=== PATIENT | male | born 1980 | race Caucasian/White ===

== ENCOUNTER 2025-02-13 08:54 | Outpatient (REF) | payer OTHER, SELFPAY ==
--- OUTSIDE RECORDS SUMMARY | 2025-02-13 09:32 | XMS_ITS | Encounter Summary ---
Author Organization [employer] Address [address] [place] [address] 7 [place] [address] Care Team Providers Care Rn Cardiovascular Name Role Phone Brendon Padilla MD Primary Care Provider [phone] Reason for Visit * Reason Onset Date Comments Med Refill 12/13/2024 Encounter Details Date Type Department Care Team ([facility] st Contact Info) Description 12/13/2024 Refill [facility] MED & PEDS [address] [place] [address] Brendon Padilla MD [address] [place] [address] Anxiety Social History Tobacco Use Types Packs/Day Years Used Date Smoking Tobacco: Never Smokeless Tobacco: Never Depression Answer Date Recorded Patient Health Questionnaire-9 Score 2 03/16/2024 Patient Health Questionnaire-9 Score 2 03/16/2024 Last PHQ-9: Questionnaire Data Not on file 0 03/16/2024 Housing Stability Answer Date Recorded What is your housing situation today? I have karolina stacy 03/08/[address] you li ve. Do you have problems with any of the following? None of the above 03/08/2024 Food Insecurity Answer Date Recorded Within the past 12 months, y ou worried that your food would run out before you got money to buy more: Never True 03/08/2024 Within the past 12 months,th e food you bought just didn't last and you didn't have enough money to get more: Never True 11/2023 Transportation Answer Date Recorded In the past 12 months, has l ack of transportation kept you from medical appts, meetings, work or from getting things needed for daily living? No 03/08/2024 Utilities Answer Date Recorded In the past 12 months, has t he electric, gas, oil or water company threatened to shut off services in your home? No 03/08/2024 Depression Answer Date Recorded Patient Health Questionnaire-2 Score 0 03/16/2024 Sex and Gender Information Value Date Recorded Sex Assigned at Male 09/07/2022 10:20 AM EDT Legal Sex Male 10:20 AM EDT Gender Identity Male 09/07/2022 10:20 AM EDT Sexual Orientation Straight 09/07/2022 10 :20 AM EDT documented as of this encounter Plan of Treatment Upcoming Encounters Date Type Department Care Team (Late st Contact Info) Description 02/20/2025 1:00 PM EDT Clinical Support [facility] MED & PEDS [address] [place] [address] 03/08/2025 9:00 AM EDT Clinical Support [facility] MED & PEDS [address] [place] [address] Milena Dodson RN [address] [place] [address] documented as of this encounter Visit Diagnoses Diagnosis Anxiety Anxiety state, unspecified documented in this encounter Additional Health Concerns Assessment Noted Time PHQ-9 Depression Total Score: 2 03/16/20 24 2:11 PM EDT documented as of this encounter Care Teams Rn Cardiovascular Relationship Specialty Start Date End Date Brendon Padilla MD [address] [place] [address] PCP - General Internal Medicine 11/08/18 documented as of this encounter
--- OUTSIDE RECORDS SUMMARY | 2025-02-13 09:32 | XMS_ITS | Encounter Summary ---
Author Organization [employer] Address [address] [place] [address] Care Team Providers Care Instructor Extension Work Name Role Phone Brendon Padilla MD Primary Care Provider [phone] Reason for Visit * Reason Onset Date Comments Med Refill 01/26/2024 Encounter Details Date Type Department Care Team (Late st Contact Info) Description 01/26/2024 Telephone [facility] MEDICINE [address] [place] [address] Brendon Padilla MD [address] [place], [place] [id number] Med Refill Social History Tobacco Use Types Packs/Day Years Used Date Smoking Tobacco: Never Smokeless Tobacco: Never Sex and Gender Information Value Date Recorded Sex Assigned at Male 09/07/2022 10:20 AM EDT Legal Sex Male 10:20 AM EDT Gender Identity Male 09/07/2022 10:20 AM EDT Sexual Orientation Straight 09/07/2022 10 :20 AM EDT documented as of this encounter Miscellaneous Notes * Telephone Encounter - Milena Dodson RN - 01/26/2024 1:35 PM EDT Pt asking for a refill of Clonazepam again. Last refill on 02/19/23. Per message from you on 05/27/23, no refills until pt is seen. TC to pt, no answer. Pt has a f/u on 03/16/24. * Telephone Encounter - Soni Barbosaoyo - 01/26/2024 10:58 AM EDT TC from pt requesting medication refill. Medications needing refill : clonazePAM (KlonoPIN) 0.5 MG tablet To be sent to: [facility]/pharmacy #[id number] - [place] - [address] [place] [address] documented in this encounter Plan of Treatment Upcoming Encounters Date Type Department Care Team (Late st Contact Info) Description 02/20/2025 1:00 PM EDT Clinical Support [facility] MED & PEDS [address] [place] [address] 03/08/2025 9:00 AM EDT Clinical Support [facility] MED & PEDS [address] [place] [address] Milena Dodson, RN [address] [place] [address] documented as of this encounter Visit Diagnoses Not on filedocumented in this encounter Care Teams Instructor Extension Work Relationship Specialty Start Date End Date Brendon Padilla MD [address] [place] [address] PCP - General Internal Medicine 11/08/18 documented as of this encounter
--- OUTSIDE RECORDS SUMMARY | 2025-02-13 09:32 | XMS_ITS | Encounter Summary ---
Author Organization [employer] Address 75 [facility] 7 [place] [address] Care Team Providers Care Garage Supervisor Name Role Phone Brendon Padilla MD Primary Care Provider [phone] Reason for Visit * Reason Onset Date Comments Appointment Request 02/05/2025 Encounter Details Date Type Department Care Team ([facility] st Contact Info) Description 02/05/2025 Telephone [facility] MEDICINE [address] [place] [address] Brendon Padilla MD [address] [place], [place] [phone] Appointment Request Social History Tobacco Use Types Packs/Day Years [...] encounter Miscellaneous Notes * Telephone Encounter - Allison Munoz - 02/05/2025 12:00 PM EDT Tc from pt requesting a sooner appointment. Pt inform that week of melissa 02/28 will be a little too much at work. Please return call [phone] documented in this encounter Plan of Treatment Upcoming Encounters Date Type Department Care Team (Late st Contact Info) Description 02/20/2025 1:00 PM EDT Clinical Support [facility] MED & PEDS [address] [place] [address] 03/08/2025 9:00 AM EDT Clinical Support [facility] MED & PEDS [address] [place] [address] Milena Dodson, LORNE [address] [place] [address] documented as of this encounter Visit Diagnoses Not on filedocumented in this encounter Additional Health Concerns Assessment Noted Time PHQ-9 Depression Total Score: 2 03/16/20 24 2:11 PM EDT documented as of this encounter Care Teams Garage Supervisor Relationship Specialty Start Date End Date Brendon Padilla MD [address] [place] [address] PCP - General Internal Medicine 11/08/18 documented as of this encounter
--- OUTSIDE RECORDS SUMMARY | 2025-02-13 09:32 | XMS_ITS | Encounter Summary ---
Author Organization [employer] Address [address] [place] [address] Care Team Providers Care Metal Sheet Roller Operator Name Role Phone Brendon Padilla MD Primary Care Provider [phone] Reason for Visit * Reason Comments Med Refill Encounter Details Date Type Department Care Team (Late st Contact Info) Description 03/28/2023 Refill [facility] MED & PEDS [address] [place] [address] Brendon Padilla MD [address] [place] [address] Anxiety Social History Tobacco Use Types Packs/Day [...] 1:00 PM EDT Clinical Support [facility] MED & PEDS [address] [place] [address] 03/08/2025 9:00 AM EDT Clinical Support [facility] MED & PEDS [address] [place] [address] Milena Dodson RN [address] [place] [address] documented as of this encounter Visit Diagnoses Diagnosis Anxiety Anxiety state, unspecified documented in this encounter Care Teams Metal Sheet Roller Operator Relationship Specialty Start Date End Date Brendon Padilla MD [address] [place] [address] PCP - General Internal Medicine 11/08/18 documented as of this encounter
--- OUTSIDE RECORDS SUMMARY | 2025-02-13 09:32 | XMS_ITS | Clinical Summary ---
Author Organization [employer] Address [address] [place] [address] 7t [place] [address] Care Team Providers Care Radio Assembler Name Role Phone Brendon Padilla MD Primary Care Provider [phone] Allergies No known active allergies Medications cholecalciferol (Vitamin D-3) 25 MCG (1000 UT) capsuleIndicatio ns:Vitamin D deficiency Take 1 capsule (25 mcg) by mouth Once per day. 30 capsule 11 03/16/20 24 Active Semaglutide-Weig ht Management (Wegovy) 0.25 MG/0.5ML solution auto-injectorInd ications:Class 3 severe obesity due to excess calories without serious comorbidity with body mass index (BMI) of 40.0 to 44.9 in adult (CMS/HCC) 0.25 mg once a week. 2 mL 1 04/17/20 24 Active citalopram (CeleXA) 10 MG tabletIndication s:Anxiety disorder, unspecified TAKE 1 TABLET BY MOUTH EVERY DAY 90 tablet 1 09/18/20 24 Active lisinopril-hydro CHLOROthiazide 10-12.5 MG tabletIndication s:Primary hypertension Take 1 tablet by mouth Once per day. 30 tablet 11 01/24/20 25 026 Active clonazePAM (KlonoPIN) 0.5 MG tabletIndication s:Anxiety TAKE 1 TABLET BY MOUTH EVERY DAY NEEDED 20 tablet 01/27/20 25 Active clonazePAM (KlonoPIN) 0.5 MG tabletIndication s:Anxiety TAKE 1 TABLET BY MOUTH EVERY DAY NEEDED 20 tablet 01/04/20 25 025 Discontinued(Re order (will not trigger notification to Pharmacy)) Active Problems Problem Noted Date Diagnosed Date Primary hypertension 01/23/2025 Finding of above normal blood pressure 4 Depressive disorder 12/15/2012 Obesity 12/15/2012 Encounters Date Type Department Care Team Description 02/05/2025 Telephone [facility] MED & PEDS [address] [place] [address] Milena Dodson, LORNE 02/05/[address] [address] Brendon Paidlla MD Appointment Request 02/02/2025 Telephone [facility] MED & PEDS [address] [place] [address] Brendon Padilla MD recall appt (Pt needs PE appt) 01/25/2025 Refill [facility] MED & PEDS [address] [place] [address] Brendon Padilla MD Anxiety 01/23/2025 3:45 PM EDT Office Visit [facility] MED & PEDS [address] [place] [address] Brendon Padilla MD Primary hypertension (Primary Dx); Dietary counseling; Exercise counseling; Class 3 severe obesity due to excess calories with serious comorbidity and body mass index (BMI) of 40.0 to 44.9 in adult ([facility]) 01/23/2025 Travel 01/17/2025 Travel 01/16/2025 Telephone [facility] MED & PEDS [address] [place] [address] Brendon Padilla MD Appointment Request 01/16/2025 Telephone [facility] MED & PEDS [address] [place] [address] Brendon Padilla MD Appointment Request 01/04/2025 9:00 AM EST Clinical Support [facility] MED & PEDS [address] [place] [address] Milena Dodson, RN Anxiety 01/04/2025 Refill [facility] MED & PEDS [address] [place] [address] Milena Dodson, LORNE Anxiety 01/04/2025 Travel 12/28/2024 Travel 12/13/2024 Refill [facility] MED & PEDS [address] [facility] [place] [address] Brendon Padilla MD Anxiety 12/11/2024 Refill [facility] CH[facility] MED & PEDS [address] [place] [address] Brendon Padilla MD Anxiety from Last 3 Months Family History Medical History Relation Name Comments Diabetes type II Father Heart attack Maternal Grandfather ALS Mother Stroke Paternal Grandfather Relation Name Status Comments Father Maternal Grandfather Mother Paternal Grandfather Social History Tobacco Use Types Packs/Day Years Used Date Smoking Tobacco: Never Smokeless Tobacco: Never Tobacco Cessation:Counseling Given: No Depression Answer Date Recorded Patient Health Questionnaire-9 [...] Orientation Straight 09/07/2022 10 :20 AM EDT Last Filed Vital Signs Vital Sign Reading Time Taken Comments Blood Pressure 188/119 01/23/2025 3:53 PM EDT Pulse 126 01/23/2025 3:53 PM EDT Temperature 36.7 ??C (98 ??F) 01/23/2025 3:53 PM EDT Respiratory Rate 20 01/23/2025 3:53 PM EDT Oxygen Saturation 98% 01/23/2025 3:53 PM EDT Inhaled Oxygen Concentration - - Weight 137 kg (301 lb) 01/23/2025 3:53 PM EDT Height 176 cm (5' 9.29 ) 01/23/2025 3:53 PM EDT Body Mass Index 44.08 01/23/2025 3:53 PM EDT Plan of Treatment Upcoming Encounters Date Type Department Care Team ([facility] st Contact Info) Description 02/20/2025 1:00 PM EDT Clinical Support [facility] MED & PEDS [address] [place] [address] 03/08/2025 9:00 AM EDT Clinical Support [facility] MED & PEDS [address] [place] [address] Milena Dodson, RN [address] [place] [address] Health Maintenance Due Date Last Done Comments HIV Screening 1982 Alcohol/Substance Use Screening 1994 Family Planning (PISQ) 1997 Hepatitis C Screening 2000 Hepatitis B Vaccines (1 of 3 - 19+ 3-dose series) 2001 COVID-19 Vaccine (2 - 2023-2 5 season) 2024 02/16/2021 Influenza Vaccine (#1) 2024 SDOH Screening 03/08/2025 03/08/2024 Depression Screening 03/16/2025 03/16/2024, 03/16/2024 DTaP/Tdap/Td Vaccines (2 - T d or Tdap) 11/27/2025 11/27/2015 Tobacco Screening 01/23/2026 01/23/2025 Lipid Panel 05/27/2027 05/27/2022, 08/29/2020 Zoster Vaccines (1 of 2) 2032 RSV Patients and Patients Aged 60 years or older (1 - 1-dose 75+ series) 2057 HIB Vaccines Aged Out No longer eligi ble based on patient's age to complete this topic HPV Vaccines Aged Out No longer eligi ble based on patient's age to complete this topic Hepatitis A Vaccines Aged Out No long er eligible based on patient's age to complete this topic IPV Vaccines Aged Out No longer eligi ble based on patient's age to complete this topic Meningococcal Vaccine Aged Out No ca esther eligible based on patient's age to complete this topic Pneumococcal Vaccine: Pediatrics (0 to 5 Years) and At-Risk Patients (6 to 49) Years) Aged Out No longer eligible b ased on patient's age to complete this topic RSV under 20 months Aged Out No longe r eligible based on patient's age to complete this topic Rotavirus Vaccines Aged Out No longer eligible based on patient's age to complete this topic Procedures Procedure Name Priority Date/Time Associated Diagnosis Comments ECG 12-LEAD Routine 01/23/2025 4:16 PM EDT Primary hypertension POCT MAE-14 URINE DRUG SCREEN Routine 01/04/2025 9:09 AM EST Anxiety LIPID PANEL, STANDARD Routine 05/27/2022 8:02 AM EDT from Last 3 Months or Most Recently Relevant to Health Maintenance Results * ECG 12 lead (01/23/2025 4:16 PM EDT) Narrative Brendon Padilla MD - 01/23/2025 4:16 PM EDT Heart rate 87 bpm. ??[place] -31 degrees. ??Normal sinus rhythm. ??No sign of left atrial enlargement. ??No ST elevation or ST depression. ??Left axis deviation. us Brendon Padilla MD ECG ORDERABLES Final Resul t * POCT MAE-14 Urine Drug Screen (01/04/2025 9:09 AM EST) Urine Urine specimen obtained by clean catch procedure / Unknown 01/04/2025 9:09 AM EST Narrative Milena Dodson, LORNE - 01/04/2025 9:09 AM EST negative AMP, BAR, BUP, BZO, ANNY, FTY, MDMA, MET, MOP, MTD, OXY, PCP, TCA, THC. Lot# [id number] Exp: 06-27-26 us Brendon Padilla MD POINT OF CARE TEST ENTER/ED IT ORDERABLES Final Result * (ABNORMAL) LIPID PANEL, STANDARD (05/27/2022 8:02 AM EDT) Chol/HDLC Ratio 4.0 <5.0 (calc) [facility] Cholesterol, Total 190 <200 mg/dL [facility] HDL Cholesterol 47 > OR = 40 mg/dL [facility] LDL Cholesterol 121(H) mg/dL (calc) [facility] Comment: Reference range: <100 ?? Desirable range <100 mg/dL for primary prevention; ?? <70 mg/dL for patients with CHD or diabetic patients ?? with > or = 2 CHD risk factors. ?? LDL-C is now calculated using the Cesar-Rodri ?? calculation, which is a validated novel method providing ?? better accuracy than the Friedewald equation in the ?? estimation of LDL-C. ?? Cesar SS et al. CHANDLER. 2013;310(19): 7144-9096 ?? (http://education.[employer]/faq/IHA825) Non-HDL Cholesterol 143(H) <130 mg/dL (calc) [facility] Comment: For patients with diabetes plus 1 major ASCVD risk ?? factor, treating to a non-HDL-C goal of <100 mg/dL ?? (LDL-C of <70 mg/dL) is considered a therapeutic ?? option. Triglycerides 110 <150 mg/dL [facility] 05/27/2022 8:02 AM EDT us Aracelis Ruby MD LAB BLOOD ORDERABLES Final Re sult [facility] [address] from Last 3 Months or Most Recently Relevant to Health Maintenance Insurance [facility] Care Teams Radio Assembler Relationship Specialty Start Date End Date Brendon Padilla MD 505 [facility] [place] [address] PCP - General Internal Medicine 11/08/18
[2025-02-13 14:09] LABS: MANUAL DIFF FLAG NO
[2025-02-13 14:14] LABS: Basophils Absolute Auto 0.1 X10*3/uL (0.0-0.2); Basophils Percent Auto 1.7 % (0-2); Eosinophils Absolute Auto 0.3 X10*3/uL (0.0-0.4); Eosinophils Percent Auto 4.6 % (0-4); Hematocrit 49.2 % (42.0-52.0); Hemoglobin 17.4 g/dl (14.0-18.0); Imm Gran Abs Auto 0.02 X10*3/uL (0.00-0.03); Imm Gran Pct Auto 0.4 % (0.0-0.4); Lymphocytes Percent Auto 35.8 % (20-40); Mean Corpuscular HGB Conc 35.4 g/dl (31.0-36.0); Mean Corpuscular Volume 87.5 fL (80.0-98.0); Mean Platelet Volume 10.6 fL (9.4-12.4); Monocytes Absolute Auto 0.5 X10*3/uL (0.1-1.2); Monocytes Percent Auto 9.4 % (2-11); Neutrophils Absolute Auto 2.6 x10*3/uL (2.0-8.3); Neutrophils Percent Auto 48.1 % (45-73); Platelet Count 249 X10*3/uL (160-400); Red Blood Count 5.62 X10*6/uL (4.60-5.80); Red Cell Distribution Width 12.4 % (11.0-16.0); White Blood Count 5.5 X10*3/uL (4.8-10.8)
[2025-02-13 14:58] LABS: Alanine Aminotransferase 83 U/L (0-40); Albumin Level 4.3 g/dL (3.5-5.0); Alkaline Phosphatase 36 U/L (39-117); Anion Gap 11 (12-20); Aspartate Amino Transferase 42 U/L (5-37); Bilirubin Total 0.8 mg/dL (0.0-1.0); Blood Urea Nitrogen 11 mg/dL (9-16); Calcium 9.6 mg/dL (8.4-10.2); Carbon Dioxide 27 mmol/L (22-29); Chloride 106 mmol/L (96-108); Cholesterol 210 mg/dL (<200); Estimated Glomerular Filt Rate > 60; Glucose Random 120 mg/dL (60-115); HDL Cholesterol 40 mg/dL (>40); LDL Cholesterol Calculated 152 mg/dL (<100); Potassium 3.5 mmol/L (3.3-5.1); Sodium 140 mmol/L (135-145); Total Protein 7.2 g/dL (6.5-8.0); Triglycerides 91 mg/dL (<150)
[2025-02-13 15:23] LABS: TSH reflex Free T4 5.02 uIU/mL (0.32-4.0)
[2025-02-13 17:12] LABS: Free T4 (Free Thyroxine) 0.94 ng/dL (0.71-1.85)
[2025-02-14 04:51] LABS: ~HepC Num1 0.08 S/CO (0.00-0.79); ~Hepatitis C Antibody Nonreactive (Nonreactive)
== END 2025-02-13 08:55 | disposition home or self-care (01) ==
LOC: HO.CHCLDS 08:54
PROVIDERS: Visit Provider Internal Medicine
DX: Z00.00 Encounter for general adult medical examination without abnormal findings (principal); I10 Essential (primary) hypertension; E66.01 Morbid (severe) obesity due to excess calories; Z68.41 Body mass index [BMI] 40.0-44.9, adult; F41.9 Anxiety disorder, unspecified; R79.89 Other specified abnormal findings of blood chemistry; E55.9 Vitamin D deficiency, unspecified
CPT/HCPCS: 36415; 80053; 80061; 84439; 84443; 85025; 86803

== ENCOUNTER 2025-03-08 14:29 | Outpatient (REF) | payer OTHER, SELFPAY ==
--- OUTSIDE RECORDS SUMMARY | 2025-03-08 16:35 | XMS_ITS | Encounter Summary ---
Author Organization [employer] Address 75 [facility] 7t [place] [address] Care Team Providers Care Senior Animator Name Role Phone Brendon Padilla MD Primary Care Provider [phone] Encounter Details Date Type Department Care Team (Latest Contact Info) Description 03/08/2025 Travel Social History Tobacco Use Types Packs/Day Years [...] Care Team (Late st Contact Info) Description 05/23/2025 9:00 AM EDT Clinical Support [facility] MED & PEDS [address] [place] [address] Milena Dodson, LORNE [address] [place] [address] documented as of this encounter Visit Diagnoses Not on filedocumented in this encounter Additional Health Concerns Assessment Noted Time PHQ-9 Depression Total Score: 2 03/16/20 24 2:11 PM EDT documented as of this encounter Care Teams Senior Animator Relationship Specialty Start Date End Date Brendon Padilla MD [address] [place] [address] PCP - General Internal Medicine 11/08/18 documented as of this encounter
--- OUTSIDE RECORDS SUMMARY | 2025-03-08 16:35 | XMS_ITS | Clinical Summary ---
Author Organization [employer] Address [address] [place] [address] 7t [place] [address] Care Team Providers Care Crap Shooter Name Role Phone Brendon Padilla MD Primary Care Provider [phone] Allergies No known active allergies Medications cholecalciferol (Vitamin D-3) 25 MCG (1000 UT) capsuleIndicatio ns:Vitamin D deficiency Take 1 capsule (25 mcg) by mouth Once per day. 30 capsule 11 03/16/20 24 Active Semaglutide-Weig ht Management (Wegovy) 0.25 MG/0.5ML solution auto-injectorInd ications:Class 3 severe obesity due to excess calories without serious comorbidity with body mass index (BMI) of 40.0 to 44.9 in adult 0.25 mg once a week. 2 mL [...] BY MOUTH EVERY DAY NEEDED 20 tablet 02/17/20 25 Active clonazePAM (KlonoPIN) 0.5 MG tabletIndication s:Anxiety TAKE 1 TABLET BY MOUTH EVERY DAY NEEDED 20 tablet 02/17/20 25 Active clonazePAM (KlonoPIN) 0.5 MG tabletIndication s:Anxiety TAKE 1 TABLET BY MOUTH EVERY DAY NEEDED 20 tablet 02/17/20 25 Active clonazePAM (KlonoPIN) 0.5 MG tabletIndication s:Anxiety TAKE 1 TABLET BY MOUTH EVERY DAY NEEDED 20 tablet 01/27/20 25 025 Discontinued(Re order (will not trigger notification to Pharmacy)) Active Problems Problem Noted Date Diagnosed Date Long-term current use of benzodiazepine 03/08/20 25 Primary hypertension 01/23/2025 Finding of above normal blood pressure 4 Depressive disorder 12/15/2012 Obesity 12/15/2012 Encounters Date Type Department Care Team Description 03/08/2025 9:00 AM EDT Clinical Support [facility] [address] [place] [address] Milena Dodson RN Anxiety (Primary Dx); Long-term current use of benzodiazepine 03/08/2025 Telephone [facility] [address] [place] [address] Milena Dodson RN 03/08/2025 Travel 03/05/2025 Travel 03/02/2025 Telephone [facility] [address] [place] [address] Brendon Padilla MD recall appt (Pt needs pe) 03/01/2025 Refill [facility] [address] [place] [address] Milena Dodson RN 02/20/2025 1:00 PM EDT Clinical Support [facility] [address] [place] [address] Bibi Brewster RN Primary hypertension [I10] 02/20/2025 Travel 02/16/2025 Refill [facility] [address] [place] [address] Brendon Padilla MD Anxiety 02/14/2025 Refill [facility] [address] [place] [address] Brendon Padilla MD Anxiety 02/14/[address] [address] Brendon Padilla MD Results 02/14/2025 Refill [facility] [address] [place] [address] Brendon Padilla MD Anxiety 02/13/2025 Travel 02/13/2025 Orders Only [facility] [address] [place] [address] Brendon Padilla MD Transaminitis (Primary Dx) 02/05/2025 Telephone [facility] [address] [place] [address] Milena Dodson RN 02/05/[address] [address] Brendon Padilla MD Appointment Request 02/02/2025 Telephone [facility] [address] [place] [address] Brendon Padilla MD recall appt (Pt needs PE appt) 01/25/2025 Refill [facility] [address] [place] [address] Brendon Padilla MD Anxiety 01/23/2025 3:45 PM EDT Office Visit [facility] [address] [place] [address] Brendon Padilla MD Primary hypertension (Primary Dx); Dietary counseling; Exercise counseling; Class 3 severe obesity due to excess calories with serious comorbidity and body mass index (BMI) of 40.0 to 44.9 in adult ([facility]) 01/23/2025 Travel 01/17/2025 Travel 01/16/2025 Telephone [facility] [address] [place] [address] Brendon Padilla MD Appointment Request 01/16/2025 Telephone [facility] [address] [place] [address] Brendon Padilla MD Appointment Request 01/04/2025 9:00 AM EST Clinical Support [facility] [address] [place] [address] Milena Dodson RN Anxiety 01/04/[address] [facility] [address] [place] [address] Milena Dodson RN Anxiety 01/04/2025 Travel 12/28/2024 Travel 12/13/2024 Refill [facility] [address] [place] [address] Brendon Padilla MD Anxiety 12/11/2024 Refill [facility] [address] [place] [address] Brendon Padilla MD Anxiety from Last 3 [...] Sign Reading Time Taken Comments Blood Pressure 132/90 02/20/2025 1:11 PM EDT Pulse 80 02/20/2025 1:10 PM EDT Temperature 36.7 ??C (98 ??F) [...] Upcoming Encounters Date Type Department Care Team ([facility] st Contact Info) Description 05/23/2025 9:00 AM EDT Clinical Support [facility] [address] [place] [address] Milena Dodson, RN [address] [place] [address] Health Maintenance Due Date Last Done Comments HIV Screening 1982 Alcohol/Substance Use Screening 1994 Family Planning (PISQ) 1997 Hepatitis B Vaccines (1 of 3 - 19+ 3-dose series) 2001 COVID-19 Vaccine (2 - 2023-2 5 season) 2024 02/16/2021 Influenza Vaccine (#1) 2024 SDOH Screening 03/08/2025 03/08/2024 Depression Screening 03/16/2025 03/16/2024, 03/16/2024 DTaP/Tdap/Td Vaccines (2 - T d or Tdap) 11/27/2025 11/27/2015 Tobacco Screening 01/23/2026 01/23/2025 Lipid Panel 02/13/2030 02/13/2025, 05/27/2022, 08/29/2020 Zoster Vaccines (1 of 2) 2032 RSV Patients and Patients Aged 60 years or older (1 - 1-dose 75+ series) 2057 Hepatitis C Screening Completed 02/13/2025 HIB Vaccines Aged Out No longer eligi [...] Procedure Name Priority Date/Time Associated Diagnosis Comments POCT MAE-14 URINE DRUG SCREEN Routine 03/08/2025 9:02 AM EDT Long-term current use of benzodiazepine Anxiety T4, FREE Routine 02/13/2025 8:57 AM EDT HEPATITIS C AB W/REFL TO HCV RNA, QN, PCR Routine 02/13/2025 8:57 AM EDT Annual physical exam Primary hypertension Class 3 severe obesity due to excess calories without serious comorbidity with body mass index (BMI) of 40.0 to 44.9 in adult Anxiety Elevated TSH Vitamin D deficiency LIPID PANEL, STANDARD Routine 02/13/2025 8:57 AM EDT Annual physical exam Primary hypertension Class 3 severe obesity due to excess calories without serious comorbidity with body mass index (BMI) of 40.0 to 44.9 in adult Anxiety Elevated TSH Vitamin D deficiency TSH W/REFLEX TO FT4 Routine 02/13/2025 8 :57 AM EDT Annual physical exam Primary hypertension Class 3 severe obesity due to excess calories without serious comorbidity with body mass index (BMI) of 40.0 to 44.9 in adult Anxiety Elevated TSH Vitamin D deficiency COMPREHENSIVE METABOLIC PANEL Routine 02/13/2025 8:57 AM EDT Annual physical exam Primary hypertension Elevated TSH CBC WITH AUTO DIFFERENTIAL Routine 02/13/2025 8:57 AM EDT Annual physical exam Anxiety Elevated TSH Vitamin D deficiency ECG 12-LEAD Routine 01/23/2025 4:16 PM EDT Primary hypertension POCT MAE-14 URINE DRUG SCREEN Routine 01/04/2025 9:09 AM EST Anxiety from Last 3 Months Results * POCT MAE-14 Urine Drug Screen (03/08/2025 9:02 AM EDT) Only the most recent of2 resultswithin the time period is included. Urine Urine specimen obtained by clean catch procedure / Unknown 03/08/2025 9:02 AM EDT Narrative Milena Dodson RN - 03/08/2025 9:02 AM EDT negative AMP, BAR, BUP, BZO, ANNY, FTY, MDMA, MET, MOP, MTD, OXY, PCP, TCA, THC. Lot# [id number] Exp: 06-27-26 us Brendon Padilla MD POINT OF CARE TEST ENTER/ED IT ORDERABLES Final Result * (ABNORMAL) TSH W/Reflex to FT4 (02/13/2025 8:57 AM EDT) TSH reflex Free T4 5.02(H) 0.32 - 4.0 uIU/mL [facility] Blood Venous blood specimen / Unknown 02/13/2025 8:57 AM EDT 02/13/2025 2:06 PM EDT us Brendon Padilla MD LAB BLOOD ORDERABLES Final Result [facility] [address] [place] [phone] * (ABNORMAL) CBC auto differential (02/13/2025 8:57 AM EDT) White Blood Count 5.5 4.8 - 10.8 X10*3/uL [facility] Red Blood Count 5.62 4.60 - 5.80 X10*6/uL [facility] Hemoglobin 17.4 14.0 - 18.0 g/dl [facility] Hematocrit 49.2 42.0 - 52.0 % [facility] Mean Corpuscular Volume 87.5 80.0 - 98.0 fL [facility] Mean Corpuscular Hemoglobin 31.0 27.0 - 33.0 pg [facility] Mean Corpuscular HGB Conc 35.4 31.0 - 36.0 g/dl [facility] Red Cell Distribution Width 12.4 11.0 - 16.0 % [facility] Platelet Count 249 160 - 400 X10*3/uL [facility] Mean Platelet Volume 10.6 9.4 - 12.4 fL [facility] Neutrophils Percent Auto 48.1 45 - 73 % [facility] Imm Gran Pct Auto 0.4 0.0 - 0.4 % [facility] Lymphocytes Percent Auto 35.8 20 - 40 % [facility] Monocytes Percent Auto 9.4 2 - 11 % [facility] Eosinophils Percent Auto 4.6(H) 0 - 4 % [facility] Basophils Percent Auto 1.7 0 - 2 % [facility] NRBC Pct Auto 0.0 0.0 - 0.2 /100WBC [facility] Neutrophils Absolute Auto 2.6 2.0 - 8.3 x10*3/uL [facility] Imm Gran Abs Auto 0.02 0.00 - 0.03 X10*3/uL [facility] Lymphocytes Absolute Auto 2.0 1.2 - 4.9 X10*3/uL [facility] Monocytes Absolute Auto 0.5 0.1 - 1.2 X10*3/uL [facility] Eosinophils Absolute Auto 0.3 0.0 - 0.4 X10*3/uL [facility] Basophils Absolute Auto 0.1 0.0 - 0.2 X10*3/uL [facility] NRBC Abs Auto 0.000 0.0 - 0.012 X10*3/uL [facility] Blood Venous blood specimen / Unknown 02/13/2025 8:57 AM EDT 02/13/2025 2:06 PM EDT us Brendon Padilla MD LAB BLOOD ORDERABLES Final Result Performing Organization Address [facility]/ZIP Co de Phone Number [facility] [address] [place] [phone] * Hepatitis C Antibody with Reflex to HCV, RNA, Quantitative, Real-Time PCR (02/13/2025 8:57 AM EDT) Hepatitis C Antibody Nonreactive Nonreactive [facility] Comment:Antibodies to HCV no t detected; does not exclude early acuteHCV infection. Blood Venous blood specimen / Unknown 02/13/2025 8:57 AM EDT 02/13/2025 2:06 PM EDT us Brendon Padilla MD LAB BLOOD ORDERABLES Final Result Performing Organization Address [facility] Co de Phone Number [facility] [address] [place] [phone] * T4, Free (02/13/2025 8:57 AM EDT) Free T4 (Free Thyroxine) 0.94 0.71 - 1.85 ng/dL [facility] 02/13/2025 8:57 AM EDT 02/13/2025 2:06 PM EDT us Brendon Padilla MD LAB BLOOD ORDERABLES Final Result Performing Organization Address City/[facility] Co de Phone Number [facility] [address] [place] [phone] * (ABNORMAL) Lipid Panel, Standard (02/13/2025 8:57 AM EDT) Triglycerides 91 <150 mg/dL [facility] Comment:Desirable Triglyceri de: less than 150 mg/dLBorderline High Triglyceride 150-199 mg/dLHigh Triglyceride: 200-499 mg/dLVery High Triglyceride: greater than or equal to 5OO mg/dL Cholesterol 210(H) <200 mg/dL [facility] Comment:Desirable Cholestero l: less than 200 mg/dLBorderline High Cholesterol: 200-239 mg/dLHigh Cholesterol: greater than 239 mg/dL LDL Cholesterol Calculated 152(H) <100 mg/dL [facility] Comment:Desirable LDL: less than 100 mg/dLNear Optimal/Above Optimal LDL: 110- 129 mg/dLBorderline High LDL: 130-159 mg/dLHigh LDL: 160-189 mg/dLVery High LDL: greater than or equal to 190 mg/dL HDL Cholesterol 40(L) >40 mg/dL [facility] Comment:Desirable HDL: great er than 40 mg/dL Note: This HDL assay may give artificially low results in patients with liver disease. Blood Venous blood specimen / Unknown 02/13/2025 8:57 AM EDT 02/13/2025 2:06 PM EDT us Brendon Padilla MD LAB BLOOD ORDERABLES Final Result [facility] [address] [place] [phone] * (ABNORMAL) Comprehensive Metabolic Panel (02/13/2025 8:57 AM EDT) Sodium 140 135 - 145 mmol/L [facility] Potassium 3.5 3.3 - 5.1 mmol/L [facility] Chloride 106 96 - 108 mmol/L [facility] Carbon Dioxide 27 22 - 29 mmol/L [facility] Anion Gap 11(L) 12 - 20 [facility] Urea Nitrogen (BUN) 11 9 - 16 mg/dL [facility] Creatinine, Serum 0.95 0.5 - 1.4 mg/dL [facility] Estimated Glomerular Filt Rate >60 [facility] Comment:Chronic Kidney Disea se: Estimated GFR < 60 mL/min/1.70h5Bulyjj Kidney Disease: Estimated GFR < 15 mL/min/1.73m2 Glucose 120(H) 60 - 115 mg/dL [facility] Calcium 9.6 8.4 - 10.2 mg/dL [facility] Bilirubin, Total 0.8 0.0 - 1.0 mg/dL [facility] Aspartate Amino Transferase 42(H) 5 - 37 U/L [facility] Alanine Aminotransferase 83(H) 0 - 40 U/L [facility] Total Protein 7.2 6.5 - 8.0 g/dL [facility] Albumin Level 4.3 3.5 - 5.0 g/dL [facility] Alkaline Phosphatase 36(L) 39 - 117 U/L [facility] Blood Venous blood specimen / Unknown 02/13/2025 8:57 AM EDT 02/13/2025 2:06 PM EDT us Brendon Padilla MD LAB BLOOD ORDERABLES Final Result [facility] [address] [place] [phone] * ECG 12 lead (01/23/2025 4:16 PM EDT) Narrative Brendon Padilla MD - 01/23/2025 4:16 PM EDT Heart rate 87 bpm. ??[place] -31 degrees. ??Normal sinus rhythm. ??No sign of left atrial enlargement. ??No ST elevation or ST depression. ??Left axis deviation. us Brendon Padilla MD ECG ORDERABLES Final Resul t from Last 3 Months Insurance [facility] Care Teams Crap Shooter Relationship Specialty Start Date End Date Brendon Padilla MD [address] [facility] [place] [address] PCP - General Internal Medicine 11/08/18
--- OUTSIDE RECORDS SUMMARY | 2025-03-08 16:35 | XMS_ITS | Encounter Summary ---
Author Organization [employer] Address [address] [place] [address] Care Team Providers Care Scrub Wheel Operator Name Role Phone Brendon Padilla MD Primary Care Provider [phone] Reason for Visit * Reason Onset Date Comments Med Refill 01/26/2024 Encounter Details Date Type Department Care Team (Late st Contact Info) Description 01/26/2024 Telephone [facility] [address] [place] [address] Brendon Padilla MD [address] [place], [place] [phone] Med Refill Social History Tobacco Use Types [...] 0.5 MG tablet To be sent to: [facility]/pharmacy #[id number] - [place], [place] - [address] [place] [address] documented in this encounter Plan of Treatment Upcoming Encounters Date Type Department Care Team (Late st Contact Info) Description 05/23/2025 9:00 AM EDT Clinical Support [facility] [address] [place] [address] Milena Dodson RN [address] [place] [address] documented as of this encounter Visit Diagnoses Not on filedocumented in this encounter Care Teams Scrub Wheel Operator Relationship Specialty Start Date End Date Brendon Padilla MD [address] [place] [address] PCP - General Internal Medicine 11/08/18 documented as of this encounter
--- OUTSIDE RECORDS SUMMARY | 2025-03-08 16:35 | XMS_ITS | Encounter Summary ---
Author Organization [employer] Address [address] [facility] 7 [place] [address] Care Team Providers Care Contact Manager Name Role Phone Brendon Padilla MD Primary Care Provider [phone] Reason for Visit * Reason Onset Date Comments Appointment Request 02/05/2025 Encounter Details Date Type Department Care Team ([facility] st Contact Info) Description 02/05/2025 Telephone [facility] [address] [place] [address] Brendon Padilla MD [address] [place], [place] [phone] Appointment Request Social History Tobacco Use Types [...] too much at work. Please return call [phone] documented in this encounter Plan of Treatment Upcoming Encounters Date Type Department Care Team (Late st Contact Info) Description 05/23/2025 9:00 AM EDT Clinical Support [facility] [address] [place] [address] Milena Dodson, LOR[place] [address] [place] [address] documented as of this encounter Visit Diagnoses Not on filedocumented in this encounter Additional Health Concerns Assessment Noted Time PHQ-9 Depression Total Score: 2 03/16/20 24 2:11 PM EDT documented as of this encounter Care Teams Contact Manager Relationship Specialty Start Date End Date Brendon Padilla MD [address] [place] [address] PCP - General Internal Medicine 11/08/18 documented as of this encounter
--- OUTSIDE RECORDS SUMMARY | 2025-03-08 16:35 | XMS_ITS | Encounter Summary ---
Author Organization [employer] Address [address] [place] [address] 7 [place] [address] Care Team Providers Care Rehabilitation Services Manager Name Role Phone Brendon Padilla MD Primary Care Provider [phone] Reason for Visit * Reason Onset Date Comments Med Refill 12/13/2024 Encounter Details Date Type Department Care Team ([facility] st Contact Info) Description 12/13/2024 Refill [facility] [address] [place] [address] Brendon Padilla MD [address] [place] [address] Anxiety Social History Tobacco Use Types Packs/Day [...] Description 05/23/2025 9:00 AM EDT Clinical Support [facility] [address] [place] [address] Milena Dodson, LORNE [address] [place] [address] documented as of this encounter Visit Diagnoses Diagnosis Anxiety Anxiety state, unspecified documented in this encounter Additional Health Concerns Assessment Noted Time PHQ-9 Depression Total Score: 2 03/16/20 24 2:11 PM EDT documented as of this encounter Care Teams Rehabilitation Services Manager Relationship Specialty Start Date End Date Brendon Padilla MD [address] [place] [address] PCP - General Internal Medicine 11/08/18 documented as of this encounter
--- OUTSIDE RECORDS SUMMARY | 2025-03-08 16:35 | XMS_ITS | Encounter Summary ---
Author Organization [employer] Address [address] [place] [address] Care Team Providers Care Investor Name Role Phone Brendon Padilla MD Primary Care Provider [phone] Reason for Visit * Reason Comments Med Refill Encounter Details Date Type Department Care Team ([facility] Contact Info) Description 03/28/[address] [facility] [address] [place] [address] Brendon Padilla MD [address] [place] [address] Anxiety Social History Tobacco Use Types Packs/Day [...] Upcoming Encounters Date Type Department Care Team ([facility] Contact Info) Description 05/23/2025 9:00 AM EDT Clinical Support [facility] [address] [place] [address] Milena Dodson, L[place] [address] [place], [place] [phone] documented as of this encounter Visit Diagnoses Diagnosis Anxiety Anxiety state, unspecified documented in this encounter Care Teams Investor Relationship Specialty Start Date End Date Brendon Padilla MD [address] [place] [phone] PCP - General Internal Medicine 11/08/18 documented as of this encounter
--- OUTSIDE RECORDS SUMMARY | 2025-03-08 16:35 | XMS_ITS | Encounter Summary ---
Author Organization [employer] Address [address] [place] [address] [address] [place] [address] Care Team Providers Care Career Discovery Teacher Name Role Phone Brendon Padilla MD Primary Care Provider [phone] Reason for Visit * Reason Comments controlled substance treatment Encounter Details Date Type Department Care Team (Latest Contact Info) Description 03/08/2025 9:00 AM EDT Clinical Support [facility] [address] [place] [address] Milena Dodson, LORNE [address] [place], [place] Anxiety (Primary Dx); Long-term current use of benzodiazepine Social History Tobacco Use Types Packs/Day Years [...] AM EDT documented as of this encounter Progress Notes * Milena Dodson RN - 03/08/2025 9:00 AM EDT S: ELASTIC ATTACHER COVERSTITCH [place]. Patient is taking Clonazepam 0.5mg every day PRN for anxiety. Patient states has been taking medications only as needed. Denies any adverse effects. Denies nicotine, or illicit drugs use. Occasional ETOH use, pt educated of the risks associated with the combination of ETOH and BZOs, verbalized understanding. Last PCP visit was on 01/23/25. No other questions/ concerns at this time. O: CATALOGING ASSISTANT checked on 03/08/25. No discrepancies noted. Pill count performed, patient has 17 pills left, 17 expected. Utox performed, negative for all tested substances, will send it to the lab for BZO confirmation. A: BZO use r/t anxiety. P: Patient to cont. with current medication regimen as needed and take medication only as directed.f/u for next ELASTIC ATTACHER COVERSTITCH NV scheduled for 05/23/25 @ 9am. f/u sooner PRN. Patient verbalized understanding and agreed to plan. documented in this encounter Plan of Treatment Upcoming Encounters Date Type Department Care Team (Late st Contact Info) Description 05/23/2025 9:00 AM EDT Clinical Support [facility] 505 [place] [address] Milena Dodson RN [address] [place] [address] Scheduled Orders Name Type Priority Associated Diagnoses Orde r Schedule Drug Monitoring, Benzodiazepines, Quantitative, Urine Lab Routine Anxiety Ordered: 03/08/2025 documented as of this encounter Procedures Procedure Name Priority Date/Time Associated Diagnosis Comments POCT MAE-14 URINE DRUG SCREEN Routine 03/08/2025 9:02 AM EDT Long-term current use of benzodiazepine Anxiety documented in this encounter Results * POCT MAE-14 Urine Drug Screen (03/08/2025 9:02 AM EDT) Urine Urine specimen obtained by clean catch procedure / Unknown 03/08/2025 9:02 AM EDT Narrative Milena Dodson RN - 03/08/2025 9:02 AM EDT negative AMP, BAR, BUP, BZO, ANNY, FTY, MDMA, MET, MOP, MTD, OXY, PCP, TCA, THC. Lot# [id number] Exp: 06-27-26 Brendon Padilla MD POINT OF CARE TEST ENTER/ED IT ORDERABLES Final Result documented in this encounter Visit Diagnoses Diagnosis Anxiety- Primary Anxiety state, unspecified Long-term current use of benzodiazepine documented in this encounter Additional Health Concerns Assessment Noted Time PHQ-9 Depression Total Score: 2 03/16/20 24 2:11 PM EDT documented as of this encounter Care Teams Career Discovery Teacher Relationship Specialty Start Date End Date Brendon Padilla MD [address] [place] [phone] PCP - General Internal Medicine 11/08/18 documented as of this encounter
--- OUTSIDE RECORDS SUMMARY | 2025-03-08 16:35 | XMS_ITS | Encounter Summary ---
Author Organization [employer] Address [address] [facility] [address] [place] [address] Care Team Providers Care Sales And Marketing Engineer Name Role Phone Brendon Padilla MD Primary Care Provider [phone] Encounter Details Date Type Department Care Team ([facility] Contact Info) Description 03/08/2025 Telephone [facility] PEDS [address] [place] [address] Milena Dodson, RN [address] [place] [address] Social History Tobacco Use Types Packs/Day Years [...] Telephone Encounter - Milena Dodson RN - 03/08/2025 8:48 AM EDT ..What SENIOR COMMISSARY AGENT Tier would you like this patient to be? Tier 1 = HIGH RISK, Monthly SENIOR COMMISSARY AGENT visits Tier 2 = MODerate RISK, Q3 Month visits Tier 3 = LOW RISK = Q4-6 month visits documented in this encounter Plan of Treatment Upcoming Encounters Date Type Department Care Team (Late st Contact Info) Description 05/23/2025 9:00 AM EDT Clinical Support [facility] [address] [place] [address] Milena Dodson, LORNE [address] [place] [address] documented as of this encounter Visit Diagnoses Not on filedocumented in this encounter Additional Health Concerns Assessment Noted Time PHQ-9 Depression Total Score: 2 03/16/20 24 2:11 PM EDT documented as of this encounter Care Teams Sales And Marketing Engineer Relationship Specialty Start Date End Date Brendon Padilla MD [address] [place] [address] PCP - General Internal Medicine 11/08/18 documented as of this encounter
--- OUTSIDE RECORDS SUMMARY | 2025-03-08 16:35 | XMS_ITS | Encounter Summary ---
Author Organization [employer] Address [address] [facility] [address] [place] [address] Care Team Providers Care Thermospray Operator Name Role Phone Brendon Padilla MD Primary Care Provider [phone] Encounter Details Date Type Department Care Team (Latest Contact Info) Description 03/05/2025 Travel Social History Tobacco Use Types Packs/Day [...] Description 05/23/2025 9:00 AM EDT Clinical Support [facility] MED & PEDS [address] [place] [address] Milena Dodson, LORNE [address] [place] [address] documented as of this encounter Visit Diagnoses Not on filedocumented in this encounter Additional Health Concerns Assessment Noted Time PHQ-9 Depression Total Score: 2 03/16/20 24 2:11 PM EDT documented as of this encounter Care Teams Thermospray Operator Relationship Specialty Start Date End Date Brendon Padilla MD [address] [place] [address] PCP - General Internal Medicine 11/08/18 documented as of this encounter
--- OUTSIDE RECORDS SUMMARY | 2025-03-08 16:35 | XMS_ITS | Encounter Summary ---
Author Organization [employer] Address [address] [place] [id number] Care Team Providers Care Parking Inspector Name Role Phone Brendon Padilla MD Primary Care Provider [phone] Reason for Referral * Imaging (Routine) - Authorized Specialty Diagnoses / Procedures Referred By Contac t Referred To Contact Radiology Diagnoses Transaminitis Procedures US Abdomen Complete Brendon Padilla MD [address] [place] [address] Phone: tel: fax: [address] Phone: tel: fax: Referral ID Status Reason Start Date Expiration Date V isits Requested Visits Authorized [id number] Authorized 02/14/2025 02/14/2026 1 1 Encounter Details Date Type Department Care Team (Late st Contact Info) Description 02/13/[address] [facility]EDS [address] [place], [place] [phone] Brendon Padilla MD [address] [place], [place] [phone] Transaminitis (Primary Dx) Social History Tobacco Use Types Packs/Day Years [...] Description 05/23/2025 9:00 AM EDT Clinical Support [facility] MED & PEDS [address] [place] [address] Milena Dodson, LORNE [address] [place] [address] Scheduled Orders Name Type Priority Associated Diagnoses Orde r Schedule US Abdomen Complete Imaging Routine Transaminitis Expected: 02/14/2025, Expires: 02/14/2026 documented as of this encounter Procedures Procedure Name Priority Date/Time Associated Diagnosis Comments T4, FREE Routine 02/13/2025 8:57 AM EDT documented in this encounter Results * T4, Free (02/13/2025 8:57 AM EDT) Free T4 (Free Thyroxine) 0.94 0.71 - 1.85 ng/dL [facility] 02/13/2025 8:57 AM EDT 02/13/2025 2:06 PM EDT Brendon Padilla MD LAB BLOOD ORDERABLES Final Result [facility] [address] [place] [address] [phone] documented in this encounter Visit Diagnoses Diagnosis Transaminitis- Primary Nonspecific elevation of levels of transaminase or lactic acid dehydrogenase (LDH) documented in this encounter Additional Health Concerns Assessment Noted Time PHQ-9 Depression Total Score: 2 03/16/20 24 2:11 PM EDT documented as of this encounter Care Teams Parking Inspector Relationship Specialty Start Date End Date Brendon Padilla MD [address] [place] [id number] PCP - General Internal Medicine 11/08/18 documented as of this encounter
[2025-03-12 11:41] LABS: Lorazepam GCMS Urine NEGATIVE; Nordiazepam, GCMS Urine NEGATIVE; Oxazepam, GCMS Urine NEGATIVE
[2025-03-12 11:42] LABS: Alphahydroxymidazolam,GCMS Ur NEGATIVE; Alphahydroxytriazolam, GCMS Ur NEGATIVE; Alprazolam, GCMS Urine NEGATIVE; Aminoclonazepam, GCMS Urine 148; Flurazepam Metabolite,GCMS Ur NEGATIVE; Temazepam, GCMS Urine NEGATIVE
== END 2025-03-08 14:30 | disposition home or self-care (01) ==
LOC: HO.HHCLNP 14:29
PROVIDERS: Visit Provider Internal Medicine
DX: F41.9 Anxiety disorder, unspecified (principal)
CPT/HCPCS: 80346